=== PATIENT | female | born 1930 | race Caucasian/White ===

== ENCOUNTER 2016-06-15 14:15 | Inpatient (IN) | payer OTHER ==
[~2016-06-15] VITALS: Ht 157.5 cm; Wt 58.1 kg
[2016-06-15 15:51] LABS: HEMOGLOBIN 13.5 gm/dl (12.3-15.3); RED BLOOD COUNT 4.62 M/UL (4.00-5.10)
[2016-06-15 16:17] LABS: BUN/CREATININE RATIO 24 (0-10)
[2016-06-15] MEDS ORDERED: NORVASC 5 MG TAB5 MG PO (23:02)
[2016-06-16 07:24] LABS: HEMOGLOBIN 13.5 gm/dl (12.3-15.3); RED BLOOD COUNT 4.68 M/UL (4.00-5.10); WHITE BLOOD COUNT 9.3 K/UL (4.5-11.0)
[2016-06-16 08:00] LABS: BUN/CREATININE RATIO 23 (0-10)
[2016-06-18 04:01] LABS: HEMOGLOBIN 12.7 gm/dl (12.3-15.3); RED BLOOD COUNT 4.36 M/UL (4.00-5.10); WHITE BLOOD COUNT 7.4 K/UL (4.5-11.0)
[2016-06-18 04:06] LABS: BUN/CREATININE RATIO 29 (0-10)
[2016-06-18] MEDS ORDERED: ASPIRIN81 MG PO (17:58)
[2016-06-18] MEDS ORDERED: COREG 3.125M3.125 MG PO (17:59)
[2016-06-18] MEDS ORDERED: PLAVIX 75 MG TA75 MG PO (17:59)
[2016-06-18] MEDS ORDERED: ISOSORBIDE MONO30 MG PO (18:00)
[2016-06-18] MEDS ORDERED: LISINOPRIL5 MG PO (18:01)
[2016-06-18] MEDS ORDERED: ZOCOR 10 MG TAB10 MG GT (18:02)
[2016-06-18] MEDS ORDERED: NITROSTAT 0.40.4 MG SL (18:04)
== END 2016-06-18 17:17 | disposition home or self-care (01) | DRG 282 ==
LOC: ER1 14:15 → PROG CARE 17:00 → ZEROF 17:00 → PROG CARE 22:30
PROVIDERS: Emergency Medicine; Internal Medicine; ADMIT Internal Medicine
DX: I21.4 Non-ST elevation (NSTEMI) myocardial infarction (principal); I10 Essential (primary) hypertension; E78.5 Hyperlipidemia, unspecified; F03.90 Unspecified dementia, unspecified severity, without behavioral disturbance, psychotic disturbance, mood disturbance, and anxiety; H35.30 Unspecified macular degeneration; Z87.891 Personal history of nicotine dependence; Z79.899 Other long term (current) drug therapy; Z90.49 Acquired absence of other specified parts of digestive tract; Z98.890 Other specified postprocedural states; Z83.3 Family history of diabetes mellitus
CPT/HCPCS: ECHO; 36415; 70450; 71010; 80048; 80053; 80061; 82550; 82553; 83036; 83690; 83735; 83874; 83880; 84443; 84484; 85025; 85027; 85610; 85730; 93005; 93306; 96372; 99285; J1650; J7030

== ENCOUNTER 2016-07-27 16:23 | Emergency (ER) | payer OTHER ==
[~2016-07-27 16:23] MED LIST: ASPIRIN81 MG PO; COREG 3.125M3.125 MG PO; ISOSORBIDE MONO30 MG PO; LISINOPRIL5 MG PO; NITROSTAT 0.40.4 MG SL; NORVASC 5 MG TAB5 MG PO; PLAVIX 75 MG TA75 MG PO; ZOCOR 10 MG TAB10 MG GT
[2016-07-27 18:54] LABS: HEMOGLOBIN 13.9 gm/dl (12.3-15.3); RED BLOOD COUNT 4.68 M/UL (4.00-5.10); WHITE BLOOD COUNT 11.4 K/UL (4.5-11.0)
[2016-07-27 19:07] LABS: BUN/CREATININE RATIO 38 (0-10)
== END 2016-07-27 22:55 | disposition home or self-care (01) ==
LOC: ER1 16:23
PROVIDERS: Emergency Medicine
DX: N39.0 Urinary tract infection, site not specified (principal); R31.9 Hematuria, unspecified; K59.00 Constipation, unspecified; K44.9 Diaphragmatic hernia without obstruction or gangrene; K57.90 Diverticulosis of intestine, part unspecified, without perforation or abscess without bleeding; I25.10 Atherosclerotic heart disease of native coronary artery without angina pectoris; I25.2 Old myocardial infarction; Z79.82 Long term (current) use of aspirin; Z79.02 Long term (current) use of antithrombotics/antiplatelets
CPT/HCPCS: 36415; 80053; 81001; 85025; 87086; 96374; 99284; J0696